=== PATIENT | male | born 1970 | race Caucasian/White ===

== ENCOUNTER 2018-04-14 07:58 | Day surgery (SDC) | payer OTHER ==
[2018-04-10 11:03] VITALS: BMI 28.2
[2018-04-14] MEDS ORDERED: PROPOFOL 20 ML ONE ×2 (08:00)
[2018-04-14] MEDS ORDERED: LIDOCAINE HCL/PF 2% SDV 5ML VIAL ONE (08:07)
[2018-04-14 09:12] VITALS: TEMP 97.9
[2018-04-14 09:41] VITALS: BP 153/98; PULSE 76
--- NOTE | 2018-04-15 16:03 | PATH ---
Surgical Pathology Report Patient Name: MANOJ DYKES [facility]. Rec. #: [id number] /Age/Gender: 1970 (Age: 47) / M Account: [id number] Location: [facility]-ENDOSCOPY Taken: 04/14/2018 Received: 04/14/2018 Reported: 04/15/2018 Physicians: Alfonso Paula M.D. Specimen(s) Received DISTAL SIGMOID Clinical History Family history of colon cancer Postoperative diagnosis: Polyp Final Diagnosis DISTAL SIGMOID COLON, BIOPSY: TUBULAR ADENOMA. Electronically Signed Rossi Rothman M.D. Gross Description Received in formalin, labeled "distal sigmoid" is a perez, irregular portion of soft tissue measuring 0.3 cm. in greatest dimension. The specimen is submitted in toto in one cassette. 04/14/201804/14/2018
== END 2018-04-14 10:10 | disposition home or self-care (01) ==
LOC: FASU-ENDO 07:58
PROVIDERS: ATTEND Internal Medicine Gastroenterology
PROC: 0DBN8ZX Excision of Sigmoid Colon, Via Natural or Artificial Opening Endoscopic, Diagnostic (ICD-10-PCS; principal; 2018-04-14 08:41)
DX: Z12.11 Encounter for screening for malignant neoplasm of colon (principal); Z80.0 Family history of malignant neoplasm of digestive organs; D12.5 Benign neoplasm of sigmoid colon
CPT/HCPCS: 88305-TC

== ENCOUNTER 2023-07-26 15:18 | Observation (INO) | payer OTHER ==
[2023-07-26] MEDS ORDERED: FOLIC ACID 1 MG TABLET (FP) PO ONE (16:08)
[2023-07-26] MEDS ORDERED: THIAMINE HCL 200 MG/2 ML VIAL IVPB ONE (16:08)
[2023-07-26] MEDS ORDERED: chlordiazePOXIDE HCL 25 MG CAPSULE PO ONE ×2 (16:08→20:23)
[2023-07-26] MEDS ORDERED: chlordiazePOXIDE HCL 25 MG CAPSULE ONE ×2 (16:12→20:34)
[2023-07-26] MEDS ORDERED: THIAMINE HCL 200 MG/2 ML VIAL ONE (16:37)
[2023-07-26 16:45] LABS: HEMATOCRIT 23.7 % (35.4-49); HEMOGLOBIN 8.1 G/dL (11.7-16.9); MCH 37.9 pg (25.7-33.7); MCHC 34.1 g/dl (32.0-35.9); MEAN CELL VOLUME 111.2 fl (80-96); PLATELET COUNT 89.1 10^3/uL (134-434); RBC 2.13 10^6/uL (4.00-5.60)
[2023-07-26 16:46] LABS: INR 1.93 (0.83-1.09); PROTHROMBIN TIME (PATIENT) 22.2 SEC (9.7-13.0)
[2023-07-26 16:49] LABS: ACTIVATED PTT 45.5 SECONDS (25.2-36.5)
[2023-07-26 16:55] LABS: ALBUMIN 3.7 g/dl (3.4-5.0); ALK PHOS 92 U/L (45-117); ANION GAP 11 mmol/L (4-13); BILIRUBIN,TOTAL 8.5 mg/dl (0.2-1); CALCIUM 8.9 mg/dl (8.5-10.1); CHLORIDE 94 mmol/L (98-107); CO2 29 mmol/L (21-32); CREATININE 0.9 mg/dl (0.6-1.3); GLUCOSE,RANDOM 92 mg/dl (74-106); PHOSPHOROUS 3.6 (2.5-4.9); POTASSIUM 3.4 mmol/L (3.5-5.1); SGOT/AST 43 U/L (15-37); SGPT/ALT 17 U/L (7-52); SODIUM 134 mmol/L (136-145); TOT PROT 7.6 g/dl (6.4-8.2)
[2023-07-26 16:59] LABS: MAGNESIUM 0.9 mg/dL (1.8-2.4)
[2023-07-26] MEDS ORDERED: MAGNESIUM SULFATE IN WATER 2 GM/50 ML IVPB IVPB ONE ×2 (17:01→17:11)
[2023-07-26 17:05] LABS: PLATELET ESTIMATE DECREASED
[2023-07-26 17:08] LABS: ANISOCYTOSIS 1+; MACROCYTOSIS 1+
[2023-07-26] MEDS ORDERED: LACTATED RINGERS SOLUTION 1000 ML INFUS.BAG IV ONE (17:15)
[2023-07-26 17:51] LABS: LIPASE 386 U/L (73-393)
[2023-07-26] MEDS ORDERED: LACTULOSE 20 GM/30 ML UDC (FOR ORAL USE ONLY) PO ONE (20:52)
[2023-07-26] MEDS ORDERED: LACTULOSE 20 GM/30 ML UDC (FOR ORAL USE ONLY) ONE (21:07)
[2023-07-26 21:59] VITALS: BMI 26.6
[2023-07-27] MEDS ORDERED: MAGNESIUM SULF 50% (8.12 MEQ/2 ML-1 GM VIAL) IVPB ONE ×2 (00:39→09:00)
[2023-07-27] MEDS ORDERED: chlordiazePOXIDE HCL 25 MG CAPSULE PO PRN (00:41)
[2023-07-27 01:08] LABS: COCAINE, UR NEGATIVE (NEGATIVE); URINE AMPHETAMINES NEGATIVE (NEGATIVE)
[2023-07-27 01:09] LABS: OPIATES, URI NEGATIVE (NEGATIVE); PHENCYCLIDINE,URINE NEGATIVE (NEGATIVE); URINE BARBITURATES NEGATIVE (NEGATIVE)
[2023-07-27 01:10] LABS: METHADONE, UR NEGATIVE (NEGATIVE)
[2023-07-27 01:11] LABS: URINE BENZODIAZEPINES POSITIVE (NEGATIVE)
[2023-07-27] MEDS ORDERED: chlordiazePOXIDE HCL 25 MG CAPSULE PO SCH (05:00)
[2023-07-27 08:29] LABS: HEMATOCRIT 21.6 % (35.4-49); HEMOGLOBIN 7.4 G/dL (11.7-16.9); MCH 37.9 pg (25.7-33.7); MCHC 34.3 g/dl (32.0-35.9); MEAN CELL VOLUME 110.6 fl (80-96); MEAN PLT VOLUME 8.2 fl (7.5-11.1); PLATELET COUNT 86.3 10^3/uL (134-434); RBC 1.95 10^6/uL (4.00-5.60); RDW 13.8 % (11.9-15.9)
[2023-07-27 08:52] LABS: ALBUMIN 3.4 g/dl (3.4-5.0); BILIRUBIN,TOTAL 7.6 mg/dl (0.2-1); CALCIUM 8.6 mg/dl (8.5-10.1); CREATININE 0.9 mg/dl (0.6-1.3); MAGNESIUM 1.7 mg/dL (1.8-2.4); POTASSIUM 3.6 mmol/L (3.5-5.1); TOT PROT 6.9 g/dl (6.4-8.2)
[2023-07-27] MEDS: THIAMINE HCL 100 MG TABLET (FP) PO SCH (09:47)
[2023-07-27] MEDS ORDERED: FOLIC ACID 1 MG TABLET (FP) PO SCH (10:00)
[2023-07-27] MEDS ORDERED: DOXYCYCLINE INJECTION 100 MG in DEXTROSE 5%-WATER 100 ML IVPB SCH (10:00)
[2023-07-27] MEDS: FOLIC ACID 1 MG TABLET (FP) PO SCH (12:28)
[2023-07-27] MEDS ORDERED: LORazepam 2 MG/ML SDV VIAL IVPUSH PRN (14:18)
[2023-07-28] MEDS ORDERED: chlordiazePOXIDE HCL 25 MG CAPSULE PO SCH (05:00)
[2023-07-28 08:18] LABS: HEMATOCRIT 22.8 % (35.4-49); HEMOGLOBIN 7.7 G/dL (11.7-16.9); MCH 37.4 pg (25.7-33.7); MCHC 33.8 g/dl (32.0-35.9); MEAN CELL VOLUME 110.6 fl (80-96); RBC 2.06 10^6/uL (4.00-5.60); RDW 14.5 % (11.9-15.9); WHITE BLOOD COUNT 6.3 10^3/uL (4.0-10.8)
[2023-07-28 08:39] LABS: INR 1.82 (0.83-1.09)
[2023-07-28 09:03] LABS: ALBUMIN 3.5 g/dl (3.4-5.0); BILIRUBIN,TOTAL 6.9 mg/dl (0.2-1); CALCIUM 8.7 mg/dl (8.5-10.1); CREATININE 0.8 mg/dl (0.6-1.3); MAGNESIUM 1.5 mg/dL (1.8-2.4); PHOSPHOROUS 3.3 (2.5-4.9); POTASSIUM 3.6 mmol/L (3.5-5.1); TOT PROT 7.1 g/dl (6.4-8.2)
[2023-07-28] MEDS: THIAMINE HCL 100 MG TABLET (FP) PO SCH (09:24)
[2023-07-28] MEDS: FOLIC ACID 1 MG TABLET (FP) PO SCH (09:24)
[2023-07-28] MEDS ORDERED: MAGNESIUM OXIDE 400 MG TABLET (FP) PO ONE (10:00)
[2023-07-28] MEDS: LACTULOSE 20 GM/30 ML UDC (FOR ORAL USE ONLY) PO SCH (10:20)
[2023-07-29] MEDS ORDERED: chlordiazePOXIDE HCL 10 MG CAPSULE PO PRN
[2023-07-29] MEDS ORDERED: chlordiazePOXIDE HCL 10 MG CAPSULE PO SCH (05:00)
[2023-07-29 05:53] VITALS: RESP 18; TEMP 98.7
[2023-07-29 08:23] LABS: HEMATOCRIT 21.8 % (35.4-49); HEMOGLOBIN 7.1 G/dL (11.7-16.9); INR 1.91 (0.83-1.09); MCH 36.2 pg (25.7-33.7); MCHC 32.4 g/dl (32.0-35.9); MEAN CELL VOLUME 111.9 fl (80-96); MEAN PLT VOLUME 7.7 fl (7.5-11.1); PLATELET COUNT 82.1 10^3/uL (134-434); RBC 1.95 10^6/uL (4.00-5.60); RDW 14.1 % (11.9-15.9)
[2023-07-29] MEDS: FOLIC ACID 1 MG TABLET (FP) PO SCH (09:04)
[2023-07-29] MEDS: THIAMINE HCL 100 MG TABLET (FP) PO SCH (09:04)
[2023-07-29] MEDS: LACTULOSE 20 GM/30 ML UDC (FOR ORAL USE ONLY) PO SCH (09:05)
[2023-07-29 09:06] LABS: ALBUMIN 3.2 g/dl (3.4-5.0); BILIRUBIN,TOTAL 5.8 mg/dl (0.2-1); CALCIUM 8.7 mg/dl (8.5-10.1); CREATININE 0.8 mg/dl (0.6-1.3); MAGNESIUM 1.4 mg/dL (1.8-2.4); PHOSPHOROUS 3.1 (2.5-4.9); POTASSIUM 3.9 mmol/L (3.5-5.1); TOT PROT 6.6 g/dl (6.4-8.2)
[2023-07-29 10:03] VITALS: BP 137/75; PULSE 96
[2023-07-30] MEDS ORDERED: chlordiazePOXIDE HCL 10 MG CAPSULE PO SCH (05:00)
[2023-07-31] MEDS ORDERED: chlordiazePOXIDE HCL 10 MG CAPSULE PO ONE (05:00)
== END 2023-07-29 13:51 | disposition home or self-care (01) ==
LOC: FER 15:18 → FM/S 21:11
PROVIDERS: ADMIT Internal Medicine; ATTEND Internal Medicine
PROC: 3E0337Z Introduction of Electrolytic and Water Balance Substance into Peripheral Vein, Percutaneous Approach (ICD-10-PCS; principal; 2023-07-26)
PROC: 3E033NZ Introduction of Analgesics, Hypnotics, Sedatives into Peripheral Vein, Percutaneous Approach (ICD-10-PCS; 2023-07-26)
PROC: 3E033GC Introduction of Other Therapeutic Substance into Peripheral Vein, Percutaneous Approach (ICD-10-PCS; 2023-07-26)
PROC: 3E03329 Introduction of Other Anti-infective into Peripheral Vein, Percutaneous Approach (ICD-10-PCS; 2023-07-26)
DX: K70.10 Alcoholic hepatitis without ascites (principal); J18.9 Pneumonia, unspecified organism; F10.939 Alcohol use, unspecified with withdrawal, unspecified; R42 Dizziness and giddiness; R25.1 Tremor, unspecified; E83.42 Hypomagnesemia; I10 Essential (primary) hypertension; R01.1 Cardiac murmur, unspecified; R26.81 Unsteadiness on feet; G92.8 Other toxic encephalopathy; W18.39XA Other fall on same level, initial encounter; Y93.89 Activity, other specified; Y92.89 Other specified places as the place of occurrence of the external cause; Z88.0 Allergy status to penicillin
CPT/HCPCS: 0241U-QW; 36415; 70450-TC; 72125-TC; 74177-TC; 76705-TC; 80053; 80307; 81003; 82140; 82248; 83010; 83615; 83690; 83735; 84100; 84484; 85025; 85027; 85045; 85384; 85610; 85730; 86850; 86900; 86901; 87040; 87086; 97116-GP; 97161-GP; 99285-25; G0378; Q9967